=== PATIENT | female | born 1990 | race Caucasian/White ===

== ENCOUNTER 2018-11-12 08:19 | Day surgery (SDC) | payer SELFPAY ==
[2018-11-12 08:58] VITALS: BP 118/72; TEMP 97.9; BMI 23.9
[2018-11-12] MEDS ORDERED: hydrALAZINE 20 MG/ML VIAL SLOW IVP PRN (10:21)
--- NOTE | 2018-11-12 11:01 | HP ---
TIME OF EVALUATION: Roughly 10 o'clock until 10:15 a.m. LOCATION: Labor and Delivery Triage. CHIEF COMPLAINT: Contractions at full-term. This is a patient of Dr. Queen, who is currently not available. HISTORY OF PRESENT ILLNESS: In brief, this is a 28-year-old G5, P3-0-1-3 at an EGA of 39 weeks and 3 days and an EDC of November 16, 2018. She presents here with contractions that started about every 8 minutes this morning and have now increased, based on her report, to about every 3 minutes. She denies leakage of fluid or vaginal bleeding, although she did have some mucus discharge in the last few days. She has good movement. She denies any other complications. REVIEW OF SYSTEMS: Complete review of systems was completed and is otherwise negative unless specified in the HPI. PAST MEDICAL HISTORY: The patient has a known history of hypothyroidism and scoliosis. MANAGER ELECTRICAL HISTORY: The patient has a history of Bartholin cyst (recurrent) and this has required incision and drainage/care about 2 to 3 times in the past. FAMILY HISTORY: Noncontributory. ALLERGIES: NONE. SOCIAL HISTORY: Negative for alcohol, drugs, or smoking. MEDICATIONS: 1. She takes Synthroid/thyroid replacement. 2. She takes iron for iron deficiency anemia for this . PHYSICAL EXAMINATION: GENERAL: She is in no acute distress. VITAL SIGNS: Blood pressure 118/72, her heart rate is in the 50s, her SaO2 is 100%, and her temperature is 97.9. ABDOMEN: Soft and nontender. Her vaginal exam shows no gross evidence of rupture or micheline bleeding. Her cervix is 2/70/-2/cephalic. On monitor, heart tones were assessed by me and they are in the 130s to 140s and they are category I. Contractions are seen on the tocodynamometer and they are about every from 4 to 8 minutes, very irregular. There are accels and moderate variability, there are no pathological decelerations. ASSESSMENT: This is a 28-year-old multigravida at full-term, in latent labor. First cervical exam is 2 cm. No evidence of rupture or vaginal bleeding. evaluation is reassuring. PLAN: 1. We will keep the patient for 2 hours for recheck of her cervix. 2. Pain medications p.r.n. 3. No evidence of preeclampsia. 4. Rule out labor protocol. Job ID: [id number]
--- NOTE | 2018-11-12 11:49 | PDOC.EVN ---
Event Note - Event Note Event Note: Follow up exam was unchanged per RN. Vitals were wnl. OK for outpatient followup. Patient has been seen at bedside
== END 2018-11-12 11:45 | disposition home or self-care (01) ==
LOC: L&D/OP 08:19
PROVIDERS: ATTEND Obstetrics & Gynecology
DX: O47.1 False labor at or after 37 completed weeks of gestation (principal); O99.013 Anemia complicating pregnancy, third trimester; D50.9 Iron deficiency anemia, unspecified; O99.283 Endocrine, nutritional and metabolic diseases complicating pregnancy, third trimester; E03.9 Hypothyroidism, unspecified; Z3A.39 39 weeks gestation of pregnancy; Z79.899 Other long term (current) drug therapy
CPT/HCPCS: 99283

== ENCOUNTER 2018-11-12 18:27 | Inpatient (IN) | payer SELFPAY ==
[2018-11-12 19:16] VITALS: BMI 23.9
[2018-11-12] MEDS ORDERED: Promethazine HCl 25 MG/ML VIAL IM/IV PRN (19:22)
[2018-11-12] MEDS ORDERED: Butorphanol Tartrate 1 MG/ML VIAL SLOW IVP PRN (19:22)
[2018-11-12] MEDS ORDERED: Lidocaine 1.5%/Epinephrine 1:200,000 5 ML AMPUL IJ ONE ×2 (19:26→19:27)
[2018-11-12] MEDS ORDERED: Fentanyl 4 mcg/Bup 0.1% Cadd 100 ML ONE (19:26)
[2018-11-12 19:33] LABS: Hemoglobin 11.1 g/dL (12.0-16.0); Mean Corpuscular HGB CONC 36.1 g/dL (32.0-36.0); Mean Corpuscular Hemoglobin 32.5 pg (27.0-31.0); Mean Corpuscular Volume 90.2 fL (78.0-98.0); Mean Platelet Volume 7.7 fL (7.4-10.4); Platelet Count 139 thou/uL (130-400); RBC Distribution Width 11.8 % (11.5-14.5); Red Blood Cell (RBC) Count 3.41 mill/uL (4.20-5.40); White Blood Cell (WBC) Count 9.5 thou/uL (4.8-10.8)
--- NOTE | 2018-11-12 19:36 | PDOC.EVN ---
Event Note - Event Note Event Note: Exam now /0/I... This will be second TOLAC...desires trial of labor. At bedside
[2018-11-12] MEDS: Lactated Ringer's 1,000 ML IV SCH (19:38)
--- NOTE | 2018-11-12 19:47 | HP ---
TIME: 1925 hours. This is a patient of Dr. Queen, who is currently unavailable. LOCATION: Labor and Delivery. REASON FOR EVALUATION: Contractions. This patient was here earlier in the morning and was sent home as she was unchanged at 2 cm. She has a prior , who desires trial of labor after . HISTORY OF PRESENT ILLNESS: In brief, this is a 28-year-old, G5, P-3-0-1-3 at an EGA of 39 weeks and 3 days with an EDC of November 16, 2018. She was seen here earlier in Labor and Delivery, had a reactive strip, and was sent home after noting no cervical change at 2 cm. She desires a trial of labor after section. REVIEW OF SYSTEMS: Complete review of systems was checked and is otherwise negative unless specified in the HPI. PAST MEDICAL HISTORY: She has a history of hypothyroidism and scoliosis. 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 SOCIAL HISTORY: Negative. ALLERGIES: NONE. PHYSICAL EXAMINATION: VITAL SIGNS: She is afebrile and blood pressures are in the normal range. GENERAL: Clinically, she is in no acute distress, but has contraction discomfort. CERVIX: She is 6 cm dilated with no evidence of vaginal bleeding. On the monitor, heart tones are in the 130s to 140s and reactive. There are no pathological decelerations. Contractions are irregular on the tocodynamometer. ASSESSMENT: This is a multigravida, prior section, who desired a trial of labor after section. Trial of labor after section reviewed with her. Risks and benefits discussed. We also discussed a repeat section, but she desires a vaginal trial. She is now in the active phase of labor. We will have anesthesia consult per routine. Job ID: [id number]
[2018-11-12] MEDS ORDERED: Lidocaine 1% (PF) 30 ML VIAL ONE (19:52)
[2018-11-12] MEDS ORDERED: NS / Oxytocin 40 units/1000ml 1,000 ML ONE (19:52)
[2018-11-12 20:07] LABS: Syphilis Antibody Nonreactive (Nonreactive); Syphilis Antibody Index 0.03 S/CO (<1.00 Non-Reactive)
[2018-11-12] MEDS ORDERED: Acetaminophen 325 MG TAB PO PRN (20:20)
[2018-11-12] MEDS ORDERED: Naloxone HCl 0.4 mg/ml Vial IVP PRN ×2 (20:20)
[2018-11-12] MEDS ORDERED: diphenhydrAMINE 50 MG/ML VIAL IVP PRN (20:20)
[2018-11-12] MEDS ORDERED: ePHEDrine/0.9% NaCl/PF SYRINGE 50 mg/10 ml SLOW IVP PRN (20:20)
[2018-11-12] MEDS ORDERED: Ondansetron PF 4 MG/2 ML Vial IVP PRN (20:20)
[2018-11-12] MEDS ORDERED: Promethazine HCl 25 MG/ML VIAL IM PRN (20:20)
[2018-11-12] MEDS ORDERED: Lactated Ringer's 500 ML IV PRN (20:20)
[2018-11-12] MEDS ORDERED: Communication Order-Pharmacy FS SCH (20:30)
[2018-11-12] MEDS ORDERED: Fentanyl 4 mcg/Bupivacaine 0.1% Cassette 100 ML EPIDURAL SCH (20:30)
[2018-11-12] MEDS ORDERED: Bupivacaine 0.25% HCL 30 ML VIAL ONE (21:00)
[2018-11-12] MEDS ORDERED: Sodium Chloride 0.9% (PF) 10 ML VIAL ONE (21:00)
--- NOTE | 2018-11-12 21:24 | PDOC.OPDEL ---
OB Operative/Delivery Note Delivery Dr/Surgeon: Eunice/Blake (Manish Izaguirre, MS3) Pre-Delivery Diagnosis: active labor, other (Prior ) Procedure/Post Delivery Dx: spontaneous vaginal delivery (TOLAC) Weeks gestation: 39 Anesthesia: epidural - Findings A Sex: female - 1 min: 9 - 5 min: 9 - Additional Findings/Plan Placenta delivered: spontaneous (Alicea at 2115 (baby at 2108)) Repaired Obstetrical Laceration: none Estimated blood loss: 300 Compilations/Other Findings: Vigorous female OP position No nuchal cord Placenta intact, 3 vessel cord Counts correct Post delivery plan: routine recovery
[2018-11-12] MEDS ORDERED: hydrALAZINE 20 MG/ML VIAL SLOW IVP PRN (21:25)
[2018-11-12] MEDS ORDERED: Bisacodyl 10 MG SUPP PR PRN (21:25)
[2018-11-12] MEDS ORDERED: Milk Of Magnesia 30 ML UDCUP PO PRN (21:25)
[2018-11-12] MEDS ORDERED: Benzocaine-Menthol 82.5 ML CAN TOP PRN (21:25)
[2018-11-12] MEDS ORDERED: NS / Oxytocin 40 units/1000ml 1,000 ML IV SCH (21:30)
[2018-11-12] MEDS ORDERED: Methylergonovine 0.2 MG/ML VIAL ONE (21:35)
--- NOTE | 2018-11-12 21:39 | PDOC.EVN ---
Event Note - Event Note Event Note: 2129 Called by RN that slight PP bleed...but not PPH by quantity overall. I have ordered methergine.2 x1 as long as BPs ok
[2018-11-12 22:33] LABS: Hep B Surf Ag Non-Reactive S/CO (NonReactive)
[2018-11-13 04:39] LABS: #Lymphocytes 1.8 thou/uL (1.20-3.40); #Monocytes 0.8 thou/uL (0.11-0.59); #Neutrophils 10.6 thou/uL (1.40-6.50); %Basophils 0.1 % (0.0-1.0); %Eosinophils 0.1 % (0.0-10.0); %Lymphocytes 13.9 % (21.0-51.0); %Monocytes 6.3 % (0.0-10.0); %Neutrophils 79.7 % (42.0-75.0); Hemoglobin 8.7 g/dL (12.0-16.0); Mean Corpuscular HGB CONC 36.3 g/dL (32.0-36.0); Mean Corpuscular Hemoglobin 33.1 pg (27.0-31.0); Mean Corpuscular Volume 91.2 fL (78.0-98.0); Mean Platelet Volume 7.8 fL (7.4-10.4); Platelet Count 146 thou/uL (130-400); RBC Distribution Width 11.8 % (11.5-14.5); Red Blood Cell (RBC) Count 2.63 mill/uL (4.20-5.40); White Blood Cell (WBC) Count 13.3 thou/uL (4.8-10.8)
--- NOTE | 2018-11-13 05:30 | PDOC.PP ---
Post Progress Note Post Day #: 0 Subjective: Doing well s/p TOLAC, PO intake tolerated: yes Flatus: yes Ambulation: yes Vital Signs (12 hours) Temp Pulse Resp BP Pulse Ox 11/12/18 18:44 98.0 F 72 20 122/68 98 Weight Weight 144 lb Vitals reviewed inn QS...BPs are normal, pulse is persistently in low 50s...high 40s at rest...ASX. Patient doing well - Physical Examination General: NAD Cardiovascular: no m/r/g Abdominal: + bowel sounds, lochia, no distention, appropriately TTP Extremities: negative homans (B) Neurological: no gross focal deficits Psychiatric: A&Ox3, normal affect Result Diagrams: 11/13/18 04:19 Additional Labs: Post Labs Blood Type O NEGATIVE 11/12/18 19:21 Hep Bs Antigen Non-Reactive S/CO (NonReactive) 11/12/18 19:21 (1) (vaginal after ) Code(s): O34.219 - MATERNAL CARE FOR UNSP TYPE SCAR FROM PREVIOUS DEL Status: Acute - Assessment/Plan S/P ...doing well. Incidental bradycardia maternal, noted...no SXS. Called and reviewed HR with RN..confirmed what I saw...patient stable and ASX. HR may be her's at rest. Will just follow for now.
[2018-11-13] MEDS: Ibuprofen 800 MG TAB PO SCH ×4 (08:47→19:14)
[2018-11-13] MEDS: Prenatal Vitamin 1 TAB PO SCH (08:48)
[2018-11-13] MEDS: Docusate Calcium (SURFAK) 240 MG CAP PO SCH ×2 (08:48→19:21)
[2018-11-13] MEDS: Ferrous Sulfate 325 MG TAB PO SCH ×2 (08:48→19:15)
[2018-11-13] MEDS ORDERED: Varicella virus, LIVE 0.5 ML VIAL SC ONE (09:00)
[2018-11-13] MEDS ORDERED: Adacel (T-DAP) 0.5 ML SYRINGE IM ONE (09:00)
[2018-11-13] MEDS ORDERED: Measles/Mumps/Rubella 10 MCG/0.5 ML VIAL SC ONE (09:00)
[2018-11-13] MEDS ORDERED: Levothyroxine Sodium 75 MCG TAB PO SCH (12:00)
[2018-11-13] MEDS: Lactated Ringer's 1,000 ML IV SCH (14:43)
[2018-11-13] MEDS ORDERED: Acetaminophen/Codeine 30-300mg Tablet PO PRN ×2 (19:33)
--- NOTE | 2018-11-14 03:59 | PDOC.PP ---
Post Progress Note Post Day #: 2 PO intake tolerated: yes Flatus: yes Ambulation: yes Vital Signs (12 hours) Temp Pulse Resp BP Pulse Ox 11/13/18 23:24 98.6 F 55 L 16 95/56 L 96 11/13/18 19:50 97.5 F L 65 16 114/70 98 11/13/18 16:33 98.4 F 60 13 108/59 L Weight Weight 65.317 kg - Physical Examination General: NAD Respiratory: non-labored breathing Abdominal: appropriately TTP Neurological: no gross focal deficits Psychiatric: A&Ox3 Result Diagrams: 11/13/18 04:19 Additional Labs: Post Labs Blood Type O NEGATIVE 11/12/18 19:21 Hep Bs Antigen Non-Reactive S/CO (NonReactive) 11/12/18 19:21 (1) (vaginal after ) Code(s): O34.219 - MATERNAL CARE FOR UNSP TYPE SCAR FROM PREVIOUS DEL Status: Acute - Assessment/Plan Continue routine post care Suspect dc today Addendum - Attending - Attending Attestation Date/Time: 11/14/18 0637 I personally evaluated the patient and discussed the management with Dr. Gilman. PPD@ s/p , doing well. DC home, f/u with her provider in 6 weeks. Precautions given. I agree with the History, Examination, Assessment and Plan documented above.
[2018-11-14] MEDS: Ibuprofen 800 MG TAB PO SCH (05:26)
[2018-11-14 05:29] VITALS: BP 103/64; TEMP 97.5
[2018-11-14] MEDS ORDERED: Levothyroxine Sodium 75 MCG TAB PO SCH (06:00)
[2018-11-14] MEDS: Ferrous Sulfate 325 MG TAB PO SCH (09:17)
[2018-11-14] MEDS: Prenatal Vitamin 1 TAB PO SCH (09:17)
[2018-11-14] MEDS: Docusate Calcium (SURFAK) 240 MG CAP PO SCH (09:18)
== END 2018-11-14 11:37 | disposition home or self-care (01) | DRG 807 ==
LOC: L&D/OP 18:27 → L&D 20:07 → 3SE 11-13 08:44
PROVIDERS: ADMIT Obstetrics & Gynecology; ATTEND Obstetrics & Gynecology
PROC: 10E0XZZ Delivery of Products of Conception, External Approach (ICD-10-PCS; principal; 2018-11-12)
DX: O34.219 Maternal care for unspecified type scar from previous cesarean delivery (principal); Z37.0 Single live birth; O99.284 Endocrine, nutritional and metabolic diseases complicating childbirth; E03.9 Hypothyroidism, unspecified; O99.89 Other specified diseases and conditions complicating pregnancy, childbirth and the puerperium; Z3A.39 39 weeks gestation of pregnancy; M41.9 Scoliosis, unspecified; R00.1 Bradycardia, unspecified
CPT/HCPCS: 36415; 85025; 85027; 86780; 86850; 86870; 86900; 86901; 87340; 99285; J2001; J2210; J3490; S0020